=== PATIENT | male | born 1965 | race Caucasian/White ===

== ENCOUNTER 2025-03-23 08:11 | Outpatient (CLI) | payer MEDICARE, SELFPAY ==
--- NOTE | ~2025-03-23 | MR_ITS ---
MRI of the left foot Clinical history osteoporosis TECHNIQUE: Axial proton-density and proton-density fat-sat images, sagittal T1-weighted and STIR imag es, coronal T1-weighted and proton-density fat-sat images were acquired. FINDINGS: Bone marrow signals appear intact. No marrow edema or fracture. No definite T1 hypointensit y suggests osteomyelitis. Probable mild degenerative change at the fifth MTP joint. There is minimal degenerative change of the first MTP joint. Remaining joint spaces are intact. No significant joint e ffusion. There is a soft tissue ulcer and/or soft tissue thickening about the fifth MTP joint. Possible focal soft tissue and dorsally at the fourth interspace region no abscess evident. No intermetatarsal bursi tis or Moody's neuroma identified. Plantar fascia intact. Flexor and extensor tendons appear intact. IMPRESSION: Probable soft tissue ulcer and/or thickening about the fifth MTP joint and at the dorsal aspect of th e fourth interspace region. No abscess. No definite evidence for osteomyelitis. Reviewed, dictated and finalized at [facility]. IMPRESSION: Probable soft tissue ulcer and/or thickening about the fifth MTP joint and at t he dorsal aspect of the fourth interspace region. No abscess. No definite evidence for osteomyelitis.
== END 2025-03-23 08:12 | disposition home or self-care (01) ==
PROVIDERS: PCP Surgery
DX: M86.172 Other acute osteomyelitis, left ankle and foot (principal)
CPT/HCPCS: 73718